=== PATIENT | female | born 1985 | race Two or more races ===

== ENCOUNTER 2024-11-18 08:51 | Emergency (ER) | payer MEDICAID, SELFPAY ==
[2024-11-18 09:11] VITALS: BP 156/78; PULSE 87; RESP 18; TEMP 36.9; O2SAT 98
--- NOTE | 2024-11-18 09:25 | EDNOTE_ITS ---
ED Skin Abcess FB-RME/HPI General Chief complaint: Skin/Abscess/Foreign Body Stated complaint: SEVERE PAIN FROM UNKNOWN SKIN CONDITION Time Seen by Provider: 11/18/24 09:28 Source: patient Arrival date/time: 11/18/24 08:51 39-year-old female with no known medical history presents to the emergency room with a chief complaint of pain, itching, irritation from a rash that she has been dealing with for a month. Patient states that she recently got a biopsy from her warm in worker but she is awaiting results. Mode of arrival: ambulatory Limitations: no limitations Related Data Previous Rx's ?Medication ?Instructions ?Recorded albuterol sulfate 90 mcg/actuation See Rx Instructions inhalation 05/02/18 aerosol inhaler .COMPLEX PRN wheezing / coug h / shortness of breath #6.7 grams acetaminophen 650 mg 650 mg PO Q8H PRN fever or p ain 01/01/19 tablet,extended release #30 tabs ibuprofen 600 mg tablet 600 mg PO Q8H PRN fever or p ain 01/01/19 #30 tabs hydrocodone 5 mg-acetaminophen 325 1 tab PO BID PRN pa in #10 tabs 11/18/24 mg tablet Allergies Allergy/AdvReac Type Severity Reaction Status Date / Time codeine Allergy Intermediate Palpitation Verified 11/18/24 08:55 s Review of Systems Review of Systems Systems Reviewed: All systems reviewed, normal except as documented Constitutional Constitutional: Reports system reviewed and no additional complaints, except as documented, Denies fatigue, Denies fever(s), Denies headache(s) and Denies weakness Eyes Eyes: Reports system reviewed and no additional complaints, except as documented, Denies blurry vision and Denies change in vision ENT Ears, Nose, Mouth, and Throat: Reports system reviewed and no additional compla ints, except as documented, Denies otalgia, Denies headache(s), Denies nasal congestion, Denies throat swelling and Denies vertigo Cardiovascular Cardiovascular: Reports system reviewed and no additional complaints, except as documented, Denies chest pain, Denies dyspnea and Denies dyspnea on exertion Respiratory Respiratory: Reports system reviewed and no additional complaints, except as documented, Denies chest congestion, Denies cough, Denies dyspnea, Denies dyspnea on exertion and Denies wheezing Gastrointestinal Gastrointestinal: Reports system reviewed and no additional complaints, except as documented, Denies abdominal pain, Denies cramping, Denies nausea and Denies vomiting Genitourinary Genitourinary: Reports system reviewed and no additional complaints, except as documented Musculoskeletal Musculoskeletal: Reports system reviewed and no additional complaints, except as documented and Denies back pain Integumentary/Breasts Skin/Breast: Reports system reviewed and no additional complaints, except as documented, Reports pruritus, Reports rash, Reports skin pain and Denies wounds Neurologic Neurologic: Reports system reviewed and no additional complaints, except as documented, Denies confusion, Denies headache(s), Denies lack of coordination, Denies vertigo and Denies weakness Psychiatric Psychiatric: Reports system reviewed and no additional complaints, except as documented, Denies anxiety, Denies confusion, Denies depression, Denies paranoia, Denies suicidal ideation and Denies tactile hallucinations Endocrine Endocrine: Reports system reviewed and no additional complaints, except as documented and Denies fatigue Hematologic/Lymphatic Hematologic/Lymphatic: Reports system reviewed and no additional complaints, except as documented and Denies lymphadenopathy Allergic/Immunologic Allergic/Immunologic: Reports system reviewed and no additional complaints, except as documented, Denies throat swelling, Denies urticaria and Denies wheezing Past Medical History Past Medical History NEUROLOGIC: 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); Negative Seizures CARDIAC: Negative Angina or Congestive Heart Failure RESPIRATORY: Positive Asthma (TAKES INHALER PRN); Negative Chronic Obstructive Pulmonary Disease (COPD) GASTROINTESTINAL: Positive Gastrointestinal Disorders (CONSTIPATION) GENITOURINARY: Negative Renal Disease ENDOCRINE: Negative Diabetes Mellitus Type 1 or Diabetes Mellitus Type 2 OTHER HISTORY: Negative Blood Transfusions, Blood Transfusion Reaction or Anesthesia Reactions Family History FAMILY HISTORY: Negative Family Anesthesia Reaction Surgical History SURGICAL: Positive Tubal Ligation and Section (x3) Social History SMOKING STATUS: Former smoker ED Exam General Limitations: Present no limitations General appearance: Present alert and in no apparent distress Head Head exam: Present atraumatic Eye Eye exam: Present normal appearance, PERRL and EOMI ENT ENT exam: Present normal exam, normal oropharynx and mucous membranes moist Neck Neck exam: Present normal inspection, full ROM and trachea midline Chest Chest inspection: Present normal inspection and symmetric chest wall rise Respiratory Respiratory exam: Present normal lung sounds bilaterally Cardiovascular Cardiovascular exam: Present regular rate, normal rhythm and normal heart sounds Abdominal Exam Abdominal exam: Present soft and normal bowel sounds Extremities Exam Extremities exam: Present normal inspection and full ROM Back Exam Back exam: Present normal inspection and full ROM Neurological Exam Neurological exam: Present alert, oriented X3 and CN II-XII intact Psychiatric Psychiatric exam: Present normal affect and normal mood Skin Skin exam: Present warm, dry, intact and normal color Expanded Skin Exam Type of lesion: Present rash Distribution: Present generalized, chest, abdomen, LUE and RUE Description: Present tenderness, erythematous, swelling, blisters and crusting Course Quality Measures none Orders Category Date Time Status Dexamethasone Inj [Decadron Inj] Med 11/18/24 09:24 Discontinued 10 mg PO X1 ONE DiphenhydrAMINE [Benadryl] Med 11/18/24 09:24 Discontinued 25 mg PO X1 ONE Famotidine [Pepcid] Med 11/18/24 09:24 Discontinued 20 mg PO X1 ONE HYDROcodone*/APAP 5/325 [[place] 5/325] Med 11/18/24 10:05 Discontinued 1 tab PO X1 ONE Ketorolac Inj [Toradol Inj] Med 11/18/24 09:24 Discontinued 30 mg IM X1 ONE Vital Signs Vital signs: Vital Signs Temperature 98.5 F 11/18/24 09:11 Pulse Rate 87 11/18/24 09:11 Respiratory Rate 18 11/18/24 09:11 Blood Pressure 156/78 H 11/18/24 09:11 Pulse Oximetry (%) 98 11/18/24 09:11 Oxygen Delivery Method Room Air 11/18/24 09:11 Skin / Abscess / Foreign Body MDM Narrative MDM Narrative:: 39-year-old female with no known medical history presents to the emergency room with a chief complaint of pain, itching, irritation from a rash that she has been dealing with for a month. Patient states that she recently got a biopsy from her warm in worker but she is awaiting results. Patient is hemodynamically stable and in no apparent distress. She is afebrile not tachycardic not tachypneic Physical examination shows an erythemic pruritic scaly dry rash to the bilateral upper extremities chest. Patient states the rash has actually gotten better as it used to be in her neck and face as well. Patient states that she has been tested for lupus by her primary care provider and has already been referred to a warm in worker. Patient states her warm in worker biopsy her rash and she is just awaiting results. Patient states she is having significant pain and itching from this rash. Pain medication and antihistamines were given with some improvement to her symptoms Patient was discharged and educated to follow-up with primary care provider in the next 24 to 48 hours and return to the emergency room for any evidence of worsening signs or symptoms Patient data External records reviewed:: [facility] previous records Clinical information provided by:: patient Social determinants that could affect healthcare access:: none Patient has the following chronic illnesses:: No chronic illness How is presenting disease/condition affected by chronic disease/condition?: no chronic disease Evaluation data The following diagnostics were reviewed and interpreted by me:: lab results and radiology exam(s) Lab and/or radiology exams considered but not ordered:: Labs and radiology exams considered and ordered Interpretation Summary: N/A Medications / Prescriptions Medications or Prescriptions considered but not ordered:: Medication given Medication administrations:: Medication Administration History Discontinued Medications Hydrocodone Bitart/Acetaminophen (Hydrocodone/Apap 5/325 Tablet) 1 tab PO X1 ONE Stop: 11/18/24 10:06 Last Admin: 11/18/24 10:11 Dose: 1 tab Documented By: ROLAN Dexamethasone Sodium Phosphate (Dexamethasone Sod Phos Inj 10 Mg/Ml Vial) 10 mg PO X1 ONE Stop: 11/18/24 09:25 Last Admin: 11/18/24 09:33 Dose: 10 mg Documented By: ROLAN Diphenhydramine HCl (Diphenhydramine Elix 25 Mg/10 Ml Udc) 25 mg PO X1 ONE Stop: 11/18/24 09:25 Last Admin: 11/18/24 09:32 Dose: 25 mg Documented By: ROLAN Famotidine (Famotidine 20 Mg Tablet) 20 mg PO X1 ONE Stop: 11/18/24 09:25 Last Admin: 11/18/24 09:32 Dose: 20 mg Documented By: ROLAN Ketorolac Tromethamine (Ketorolac Inj 60 Mg/2 Ml Vial) 30 mg IM X1 ONE Stop: 11/18/24 09:25 Last Admin: 11/18/24 09:34 Dose: 30 mg Documented By: ROLAN Medication given Consultations Consultation(s) initiated? (list below): No Diagnosis Skin/Abscess Differential Diagnosis: dermatophytosis, cellulitis, eczema, contact dermatitis and other (Psoriasis/allergic reaction) Most likely diagnosis given after review of the tests above:: Psoriasis Admission Indicated Admission indicated?: not indicated Admission Request Was there a request for admission?: No Disposition Plan Disposition Plan: Discharge Discharge Attestation Discharge Attestation: The patient and all family members were given an opportunity to ask questions and understood the discharge instructions. Discharge instructions specifically effects, indications for sooner follow up or return to the emergency department, and the expected course of current diagnosis. Patient condition: Stable Discharge Plan Plan Patient Disposition: HOME (Self Care) Discharge Disposition comment: Stable Prescriptions/Referrals Prescriptions/Med Rec: New hydrocodone-acetaminophen 5-325 mg tablet 1 tab PO BID MDD 10mg PRN (Reason: pain) Qty: 10 0RF No Action albuterol sulfate 90 mcg/actuation HFA aerosol inhaler See Rx Instructions INH .COMPLEX PRN (Reason: wheezing / cough / shortness of breath) Qty: 6.7 0RF Rx Instructions: INH PRN; 1-2 puffs Q4-6 hours prn. administer with spacer acetaminophen 650 mg tablet extended release 650 mg PO Q8H PRN (Reason: fever or pain) Qty: 30 0RF Rx Instructions: swallow whole; do not crush, chew, break, dissolve, cut, or open ibuprofen 600 mg tablet 600 mg PO Q8H PRN (Reason: fever or pain) Qty: 30 0RF Rx Instructions: prn pain / fever Referrals: No Primary/Family,Physician [Primary Care Provider] - In 1 week Problem List Clinical Impression: Rash and nonspecific skin eruption Patient/Caregiver Discharge Instructions Additional Instructions: Please continue to follow-up with your warm in worker and primary care provider in the next 24 to 48 hours The skin biopsy that your warm in worker completed should give you your results and answers and help you with your symptoms. For any evidence of worsening signs or symptoms return to the emergency room immediately Print Language: Kiswahili Stand Alone Forms: Lyndsey Award Info., Patient Portal Info Letter PA/SENIOR ANALYSIS SPECIALIST Supervising Physician PA/SENIOR ANALYSIS SPECIALIST Supervising Physician: Dr. Trent
[2024-11-18] MEDS: FAMOTIDINE 20 MG TABLET PO (09:32)
[2024-11-18] MEDS: DiphenhydrAMINE ELIX 25 MG/10 ML UDC PO (09:32)
[2024-11-18] MEDS: DEXAMETHASONE SOD PHOS INJ 10 MG/ML VIAL PO (09:33)
[2024-11-18] MEDS: KETOROLAC INJ 60 MG/2 ML VIAL 30 MG IM (09:34)
[2024-11-18] MEDS: HYDROcodone/APAP 5/325 TABLET 1 TAB PO (10:11)
[2024-11-18 11:06] VITALS: BP 128/67; PULSE 76; RESP 18; TEMP 36.8; O2SAT 97
== END 2024-11-18 11:08 | disposition home or self-care (01) ==
PROVIDERS: Emergency Provider Nurse Practitioner Family
DX: R21 Rash and other nonspecific skin eruption (principal)
CPT/HCPCS: 96372; 99283; J1100; J1885; A9270